=== PATIENT | female | born 1980 | race Caucasian/White ===

== ENCOUNTER 2018-03-19 20:06 | Emergency (ER) | payer OTHER ==
[2018-03-19 20:15] VITALS: BP 122/65; PULSE 90; TEMP 98.8; BMI 27.3
--- NOTE | 2018-03-19 20:34 | PDOC ---
History of Present Illness - General History Source: Patient Exam Limitations: No Limitations - History of Present Illness Initial Comments: 03/19/18 20:53 The patient is a 37 year old female, with no significant past medical history, who presents to the emergency department with a rash to her face, neck and chest today. The patient states her noticed redness on her face this morning, but the patient states she was not very concerned. She reportedly unchanged after work and discovered a burning rash to her anterior chest and neck. She reportedly was started on amoxicillin 2 weeks ago in preparation for oral surgery and was switched to clindamycin about 5 days ago because the oral surgeon told the patient the infection had not resolved. She states she has never taken clindamycin in the past. She denies taking benadryl at home because she was concerned about possible interactions with her current antibiotics. She denies any mouth or throat swelling. She denies any other symptoms. She reports her last dose of clindamycin was around 2PM today. She states she was given 3 medications for pain and has taken one of each type with a few days between each dose. She states has been taking ibuprofen as needed for her dental pain. She denies itching. Secondarily, she reports opened 4 new spices today while cooking dinner, however, states she has used the spices in other dishes in the past. The patient denies chest pain, shortness of breath, headache and dizziness. The patient denies fever, chills, nausea, vomit, diarrhea and constipation. The patient denies dysuria, frequency, urgency and hematuria. Allergies: NKDA Past surgical history: none reported <Lisbeth Barreto - Last Filed: 03/19/18 20:57> <Sharri Shane - Last Filed: 03/20/18 00:37> - General Chief Complaint: Rash Stated Complaint: RASH UPPER TORSO Time Seen by Provider: 03/19/18 20:11 Past History <Lisbeth Barreto - Last Filed: 03/19/18 20:57> - Past Medical History COPD: No - Suicide/Smoking/Psychosocial Hx Smoking History: Never smoked <Sharri Shane - Last Filed: 03/20/18 00:37> - Past Medical History Allergies/Adverse Reactions: Allergies Allergy/AdvReac Type Severity Reaction Status Date / Time [place] And Derivatives Allergy Verified 03/19/18 20:08 No Known Drug Allergies Allergy Verified 03/19/18 20:08 Home Medications: Ambulatory Orders Clindamycin [Cleocin -] 150 mg PO Q6H 03/19/18 Ibuprofen 400 mg PO PRN PRN 03/19/18 Review of Systems - Review of Systems Able to Perform ROS?: Yes Comments:: 03/19/18 20:54 CONSTITUTIONAL: Absent: fever, no chills, no fatigue EYES: Absent: visual changes ENT: Absent: ear pain, no sore throat CARDIOVASCULAR: Absent: chest pain, no palpitations RESPIRATORY: Absent: cough, no SOB GI: Absent: abdominal pain, no nausea, no vomiting, no constipation, no diarrhea GENITOURINARY: Absent: dysuria, no frequency, no hematuria MUSKULOSKELETAL: Absent: back pain, no arthralgia, no myalgia SKIN: (+)rash to chest, neck and face NEURO: Absent: headache <Lisbeth Barreto - Last Filed: 03/19/18 20:57> *Physical Exam - Vital Signs Last Vital Signs Temp Pulse Resp BP Pulse Ox 98.8 F 90 16 122/65 100 03/19/18 20:12 03/19/18 20:12 03/19/18 20:12 03/19/18 20:12 03/19/18 20:12 - Physical Exam Comments: 03/19/18 20:55 GENERAL: The patient is awake, alert, and fully oriented, in no acute distress. HEAD: Normal with no signs of trauma. EYES: Pupils equal, round and reactive to light, extraocular movements intact, sclera anicteric, conjunctiva clear with no pallor. ENT: Ears normal, nares patent, oropharynx clear without exudates. Moist mucous membranes. NECK: Normal range of motion, supple without lymphadenopathy, JVD, or masses. LUNGS: Breath sounds equal, clear to auscultation bilaterally. No wheeze/ crackles. HEART: Regular rate and rhythm, normal S1 and S2 without murmur or rub. ABDOMEN: Soft/nontender/nondistended. BS wnl. No guarding or rebound. No palpable masses. No hepatosplenomegaly. EXTREMITIES: Normal range of motion, no edema. No clubbing or cyanosis. No cords , erythema, or tenderness. NEUROLOGICAL: Cranial nerves II through XII grossly intact. Normal speech, normal gait. PSYCH: Normal mood, normal affect. SKIN: (+) Faint erythema of bilateral cheeks, erythematous maculopapular rash of the anterior chest and scattered on upper back. <Lisbeth Barreto - Last Filed: 03/19/18 20:57> - Vital Signs Last Vital Signs Temp Pulse Resp BP Pulse Ox 98.8 F 90 16 122/65 100 03/19/18 20:12 03/19/18 20:12 03/19/18 20:12 03/19/18 20:12 03/19/18 20:12 <Sharri Shane - Last Filed: 03/20/18 00:37> Moderate Sedation - Procedure Monitoring Vital Signs: Procedure Monitoring Vital Signs Temperature 98.8 F 03/19/18 20:12 Pulse Rate 90 03/19/18 20:12 Respiratory Rate 16 03/19/18 20:12 Blood Pressure 122/65 03/19/18 20:12 O2 Sat by Pulse Oximetry (%) 100 03/19/18 20:12 <Lisbeth Barreto - Last Filed: 03/19/18 20:57> - Procedure Monitoring Vital Signs: Procedure Monitoring Vital Signs Temperature 98.8 F 03/19/18 20:12 Pulse Rate 90 03/19/18 20:12 Respiratory Rate 16 03/19/18 20:12 Blood Pressure 122/65 03/19/18 20:12 O2 Sat by Pulse Oximetry (%) 100 03/19/18 20:12 <Sharri Shane - Last Filed: 03/20/18 00:37> Progress Note - Progress Note Progress Note: Documentation has been prepared under my direction and personally reviewed by me in its entirety. I attest that this documented accurately reflects all work, treatment, procedures and medical decision making performed by me. <Sharri Shane - Last Filed: 03/20/18 00:37> Medical Decision Making - Medical Decision Making As noted above, this 37-year-old woman, currently being treated for dental abscess by oral surgeon and recent change to clindamycin antibiotic course(4 days ago) presents with a few hour history of erythematous, maculopapular rash of the anterior chest and upper back. No history of lip/tongue swelling or airway compromise. Although the patient had been taking amoxicillin up until 4 days ago and has had a few doses of pain medications since treatment of her dental abscess began approximately 10 days ago, the only new medication in the last few days has been the clindamycin. Exam as noted. Patient will stop the clindamycin; Benadryl 25 mg will be given here and further doses every 6 hours as needed will be advised. Since she is nearly at the end of the clinical course of clindamycin, (only 4 capsules left) no new antibiotic will be prescribed. It has been emphasized to the patient that she must call her oral surgeon as soon as possible to let him know that clindamycin was stopped after ALLERGIC reaction. Any further antibiotic treatment of her abscess will be through her oral surgeon. If she has any worsening of her rash or develops any lip/tongue swelling, shortness of breath or difficulty swallowing, she should return to the ER <Sharri Shane - Last Filed: 03/20/18 00:37> *DC/Admit/Observation/Transfer - Attestations Scribe Attestion: 03/19/18 20:55 Documentation prepared by Lisbeth Barreto, acting as ophthalmic medical technician for Sharri Shane MD <Lisbeth Barreto - Last Filed: 03/19/18 20:57> <Sharri Shane - Last Filed: 03/20/18 00:37> Diagnosis at time of Disposition: Urticaria Allergic reaction caused by a drug Qualifiers: Encounter type: initial encounter Qualified Code(s): T78.40XA - Allergy, unspecified, initial encounter - Discharge Dispostion Disposition: HOME Condition at time of disposition: Stable - Patient Instructions Printed Discharge Instructions: Mandeep Additional Instructions: stop clindamycin let your oral surgeon know that you have stopped the antibiotic Benadryl 25 mg up to 3 times a day as needed Cool compresses to rash as needed You can continue ibuprofen/acetaminophen as needed for pain Return to ER if you have severe rash/lip or tongue swelling /difficulty swallowing Follow-up with your general doctor within the next 5 days
[2018-03-19] MEDS ORDERED: diphenhydrAMINE HCL 25 MG CAPSULE (FP) PO ONE ×2 (20:49→20:51)
== END 2018-03-19 21:04 | disposition home or self-care (01) ==
LOC: FER 20:06
DX: T78.40XA Allergy, unspecified, initial encounter (principal)
CPT/HCPCS: 99281-25

== ENCOUNTER 2023-02-27 21:19 | Emergency (ER) | payer BC, OTHER ==
[2023-02-27 21:28] VITALS: BP 114/72; PULSE 97; RESP 18; TEMP 98.3; BMI 29.2
[2023-02-27] MEDS ORDERED: ACETAMINOPHEN 1000 MG/100 ML BAG IVPB ONE (22:08)
[2023-02-27] MEDS ORDERED: ONDANSETRON 4 MG/2 ML VIAL IVPUSH ONE (22:08)
[2023-02-27 22:28] LABS: BASO % 0.6 % (0-2.0); EOS % 1.3 % (0-4.5); HEMATOCRIT 38.3 % (32.4-45.2); LYMPH % 18.9 % (8-40); MCH 27.6 pg (25.7-33.7); MCHC 33.9 g/dl (32.0-36.0); MEAN CELL VOLUME 81.5 fl (80-96); MEAN PLT VOLUME 7.5 fl (7.5-11.1); MONO % 7.2 % (3.8-10.2); PLATELET COUNT 449 10^3/uL (134-434); WHITE BLOOD COUNT 14.3 K/mm3 (4.0-10.0)
[2023-02-27 22:31] LABS: EPI CELLS 11 /uL (0-25.1); HYALINE CASTS 0 /uL (0-3.1); PH,URINE 6.5 (5.0-8.0); URINE APPEARANCE CLEAR; URINE BACTERIA 154 /uL (0-1359); URINE BILIRUBIN NEGATIVE (NEGATIVE); URINE COLOR YELLOW; URINE GLUCOSE (UA) NEGATIVE (NEGATIVE); URINE KETONE NEGATIVE (NEGATIVE); URINE LEUK ESTERASE NEGATIVE (NEGATIVE); URINE NITRITE NEGATIVE (NEGATIVE); URINE PROTEIN NEGATIVE (NEGATIVE); URINE RBC 13 /uL (0-23.9); URINE UROBILINOGEN 0.2 mg/dL (0.2-1.0); URINE WBC 6 /uL (0-25.8)
[2023-02-27] MEDS ORDERED: ONDANSETRON 4 MG/2 ML VIAL ONE (22:37)
[2023-02-27] MEDS ORDERED: ACETAMINOPHEN INJECTION 100 ML IVPB ONE (22:37)
[2023-02-27 22:53] LABS: POTASSIUM 4.4 mmol/L (3.5-5.1)
[2023-02-27 22:55] LABS: ALBUMIN 2.9 g/dl (3.4-5.0); BLOOD UREA NITROGEN 8.3 mg/dL (7-18)
[2023-02-27 22:59] LABS: CREATININE 0.6 mg/dL (0.55-1.3)
[2023-02-27 23:01] LABS: BILIRUBIN,TOTAL 0.2 mg/dL (0.2-1); TOT PROT 7.2 g/dl (6.4-8.2)
[2023-02-27 23:21] LABS: HCG,QUALITATIVE URINE Positive
== END 2023-02-28 01:38 | disposition home or self-care (01) ==
LOC: JER 21:19
DX: O20.9 Hemorrhage in early pregnancy, unspecified (principal); O26.891 Other specified pregnancy related conditions, first trimester; R10.9 Unspecified abdominal pain; K59.00 Constipation, unspecified; O21.9 Vomiting of pregnancy, unspecified; Z3A.11 11 weeks gestation of pregnancy
CPT/HCPCS: 36415; 76801-TC; 80053; 81003; 84702; 84703; 85025; 86850; 86900; 86901; 87086; 99284-25

== ENCOUNTER 2023-08-30 16:15 | Inpatient (IN) | payer BC, OTHER ==
[2023-08-30] MEDS: ELECTROLYTE-148 SOLN 1,000 ML IV SCH (18:15)
[2023-08-30 18:22] VITALS: BMI 33.4
[2023-08-30 19:21] LABS: BASO % 0.3 % (0-2.0); EOS % 0.7 % (0-4.5); HEMATOCRIT 36.2 % (32.4-45.2); HEMOGLOBIN 11.9 GM/dL (10.7-15.3); LYMPH % 16.8 % (8-40); MCH 28.1 pg (25.7-33.7); MCHC 32.8 g/dl (32.0-36.0); MEAN CELL VOLUME 85.7 fl (80-96); MEAN PLT VOLUME 8.4 fl (7.5-11.1); NEUT % 75.2 % (42.8-82.8); PLATELET COUNT 285 10^3/uL (134-434); RBC 4.22 M/mm3 (3.60-5.2); RDW 16.5 % (11.6-15.6); WHITE BLOOD COUNT 11.1 K/mm3 (4.0-10.0)
[2023-08-30 19:27] LABS: INR 0.95 (0.83-1.09); PROTHROMBIN TIME (PATIENT) 10.7 SEC (9.7-13.0)
[2023-08-30 19:30] LABS: ACTIVATED PTT 28.8 SECONDS (25.2-36.5)
[2023-08-30 19:43] LABS: POTASSIUM 4.2 mmol/L (3.5-5.1)
[2023-08-30 19:45] LABS: BLOOD UREA NITROGEN 7.6 mg/dL (7-18); CALCIUM 9.2 mg/dL (8.5-10.1)
[2023-08-30 20:04] LABS: CREATININE 0.9 mg/dL (0.55-1.3)
[2023-08-30] MEDS ORDERED: OXYTOCIN 30 UNITS in 0.9% NS 30 UNIT/500 ML INFUS.BAG IVPB ONE (20:31)
[2023-08-30] MEDS: OXYTOCIN 30 UNITS in 0.9% NS 30 UNIT/500 ML INFUS.BAG IVPB SCH (20:45)
[2023-08-31] MEDS ORDERED: FENTANYL/BUPIVACAINE/NS/PF - PCEA - 50 ML DISP.SYRIN EP ONE ×3 (01:27→09:04)
[2023-08-31] MEDS: FENTANYL/BUPIVACAINE/NS/PF - PCEA - 50 ML DISP.SYRIN EP SCH ×2 (02:10→06:30)
[2023-08-31] MEDS ORDERED: NALOXONE HCL 0.4 MG/ML VIAL IVPUSH PRN (02:26)
[2023-08-31] MEDS: CITRIC ACID/SODIUM CITRATE 30 ML UNIT-DOSE CUP PO ONE (09:30)
[2023-08-31] MEDS ORDERED: ACETAMINOPHEN 325 MG TABLET (FP) PO PRN (09:51)
[2023-08-31] MEDS ORDERED: METHYLERGONOVINE MALEATE 0.2 MG/1 ML AMP IM PRN (09:51)
[2023-08-31] MEDS ORDERED: FENTANYL CITRATE/PF 50 MCG/ML VIAL ONE (10:11)
[2023-08-31 11:11] LABS: CORD BASE EXCESS -0.8 mmol/L (0-2); CORD HCO3 24.8 mmHg (20-29); CORD pH 7.368 (7.14-7.44)
[2023-08-31 11:14] LABS: CORD BASE EXCESS -4.7 mmol/L (0-2); CORD PCO2 46.9 mmHg (30-78); CORD pH 7.29 (7.14-7.44)
[2023-08-31] MEDS: CEFAZOLIN 1 GM in DEXTROSE 5%-WATER - 50 ML IVPB SCH (12:44)
[2023-08-31 12:55] LABS: POC NITRAZINE POS
[2023-08-31] MEDS: OXYTOCIN 20 UNITS in 0.9% NS 20 UNIT/1,000 ML INFUS.BAG IV SCH (13:30)
[2023-08-31] MEDS ORDERED: OXYTOCIN 20 UNITS in 0.9% NS 20 UNIT/1,000 ML INFUS.BAG IV ONE (13:30)
[2023-08-31] MEDS: ONDANSETRON 4 MG/2 ML VIAL IVPUSH PRN (18:49)
[2023-09-01] MEDS: SIMETHICONE 80 MG TAB.CHEW (FP) PO PRN (05:52)
[2023-09-01] MEDS: IBUPROFEN 600 MG TABLET (FP) PO PRN (05:53)
[2023-09-01 06:49] LABS: BASO % 0.5 % (0-2.0); EOS % 0.3 % (0-4.5); HEMATOCRIT 33.4 % (32.4-45.2); HEMOGLOBIN 10.9 GM/dL (10.7-15.3); LYMPH % 10.4 % (8-40); MCH 28.4 pg (25.7-33.7); MCHC 32.7 g/dl (32.0-36.0); MEAN CELL VOLUME 86.8 fl (80-96); MEAN PLT VOLUME 8.1 fl (7.5-11.1); MONO % 6.1 % (3.8-10.2); NEUT % 82.7 % (42.8-82.8); PLATELET COUNT 237 10^3/uL (134-434); RBC 3.85 M/mm3 (3.60-5.2); RDW 16.4 % (11.6-15.6)
[2023-09-01] MEDS: ENOXAPARIN NA (PORCINE) 40 MG/0.4 ML DISP.SYRIN SQ SCH (09:15)
[2023-09-01] MEDS: oxyCODONE HCL 5 MG TABLET PO PRN (22:28)
[2023-09-02] MEDS: BISACODYL 10 MG SUPP.RECT RC PRN (21:33)
[2023-09-03 00:23] VITALS: TEMP 98
[2023-09-03 06:34] LABS: BASO % 0.4 % (0-2.0); EOS % 0.9 % (0-4.5); HEMATOCRIT 31.4 % (32.4-45.2); HEMOGLOBIN 10.2 GM/dL (10.7-15.3); LYMPH % 17.5 % (8-40); MCH 28.1 pg (25.7-33.7); MCHC 32.5 g/dl (32.0-36.0); MEAN CELL VOLUME 86.4 fl (80-96); MEAN PLT VOLUME 8.4 fl (7.5-11.1); NEUT % 75.2 % (42.8-82.8); PLATELET COUNT 265 10^3/uL (134-434); RBC 3.64 M/mm3 (3.60-5.2); RDW 16.1 % (11.6-15.6); WHITE BLOOD COUNT 12.8 K/mm3 (4.0-10.0)
[2023-09-03 10:04] VITALS: BP 117/60; PULSE 87; RESP 18
== END 2023-09-03 14:00 | disposition home or self-care (01) | DRG 788 ==
LOC: JDEL 16:15 → JLDR 17:45 → J3W 08-31 13:50
PROVIDERS: ADMIT Obstetrics & Gynecology; ATTEND Obstetrics & Gynecology
PROC: 10D00Z1 Extraction of Products of Conception, Low, Open Approach (ICD-10-PCS; principal; 2023-08-31)
DX: O42.02 Full-term premature rupture of membranes, onset of labor within 24 hours of rupture (principal); O76 Abnormality in fetal heart rate and rhythm complicating labor and delivery; O99.344 Other mental disorders complicating childbirth; F41.8 Other specified anxiety disorders; Z3A.37 37 weeks gestation of pregnancy; Z37.0 Single live birth
CPT/HCPCS: 36415; 36600; 80048; 82803; 83986-QW; 85025; 85610; 85730; 86780; 86850; 86900; 86901; 88307-TC; 94010

== ENCOUNTER 2024-05-09 17:49 | Emergency (ER) | payer BC, OTHER ==
[2024-05-09 17:57] VITALS: BP 115/62; PULSE 86; RESP 20; TEMP 98.3; BMI 30.2
[2024-05-09] MEDS ORDERED: IBUPROFEN 400 MG TABLET (FP) PO ONE (19:27)
[2024-05-09] MEDS: IBUPROFEN 400 MG TABLET (FP) PO ONE (19:29)
== END 2024-05-09 19:45 | disposition home or self-care (01) ==
LOC: JERFT 17:49
DX: N75.0 Cyst of Bartholin's gland (principal); N94.819 Vulvodynia, unspecified
CPT/HCPCS: 99283-25

== ENCOUNTER 2024-08-18 09:52 | Emergency (ER) | payer BC, OTHER ==
[2024-08-18 10:07] VITALS: BP 134/84; PULSE 93; RESP 16; TEMP 99.1; BMI 30.2
[2024-08-18] MEDS ORDERED: ONDANSETRON 4 MG/2 ML VIAL ONE (11:10)
[2024-08-18 11:22] LABS: ABSOLUTE IMMATURE GRANULOCYTES 0.04 x10^3/uL (0.0-0.031); BASOPHILS # 0.08 x10^3/uL (0.01-0.08); EOSINOPHILS # 0.12 x10^3/uL (0.04-0.36); HEMATOCRIT 35.6 % (34.1-44.9); HEMOGLOBIN 10.9 g/dL (11.2-15.7); MCHC 30.6 g/dl (32.2-35.5); MEAN CELL VOLUME 78.6 fl (79.4-94.8); MEAN PLT VOLUME 9.6 fl (9.4-12.3); MONOCYTE # 0.82 x10^3/uL (0.24-0.86); MONOCYTE % 7.1 % (4.7-12.5); PLATELET COUNT 522 x10^3/uL (182-369); RDW 16.2 % (12.2-17.1)
[2024-08-18 11:26] LABS: EPI CELLS 5 /uL (0-25.1); HYALINE CASTS 0 /uL (0-3.1); URINE APPEARANCE CLEAR; URINE BACTERIA 6 /uL (0-1359); URINE BILIRUBIN NEGATIVE (NEGATIVE); URINE COLOR RED; URINE GLUCOSE (UA) NEGATIVE (NEGATIVE); URINE KETONE NEGATIVE (NEGATIVE); URINE LEUK ESTERASE TRACE (NEGATIVE); URINE NITRITE NEGATIVE (NEGATIVE); URINE PROTEIN 2+ (NEGATIVE); URINE RBC 3704 /uL (0-23.9); URINE UROBILINOGEN 0.2 mg/dL (0.2-1.0); URINE WBC 10 /uL (0-25.8)
[2024-08-18] MEDS: SODIUM CHLORIDE 0.9% 500 ML INFUS.BAG IV ONE (11:40)
[2024-08-18] MEDS: ONDANSETRON 4 MG/2 ML VIAL IVPUSH ONE (11:40)
[2024-08-18 11:45] LABS: POTASSIUM 4.7 mmol/L (3.5-5.1)
[2024-08-18 11:48] LABS: BLOOD UREA NITROGEN 8.1 mg/dL (7-18); CALCIUM 9.8 mg/dL (8.5-10.1)
[2024-08-18 11:52] LABS: CREATININE 0.6 mg/dL (0.55-1.3)
[2024-08-18 11:53] LABS: BILIRUBIN,TOTAL 0.3 mg/dL (0.2-1); TOT PROT 7.1 g/dl (6.4-8.2)
[2024-08-18] MEDS ORDERED: ACETAMINOPHEN INJECTION 100 ML ONE (12:06)
== END 2024-08-18 18:02 | disposition home or self-care (01) ==
LOC: JER 09:52
PROC: 3E033GC Introduction of Other Therapeutic Substance into Peripheral Vein, Percutaneous Approach (ICD-10-PCS; principal; 2024-08-18)
DX: O09.521 Supervision of elderly multigravida, first trimester (principal); O20.9 Hemorrhage in early pregnancy, unspecified; O26.891 Other specified pregnancy related conditions, first trimester; R10.2 Pelvic and perineal pain; R11.0 Nausea; Z3A.00 Weeks of gestation of pregnancy not specified
CPT/HCPCS: 36415; 76817-TC; 80053; 81003; 84702; 85025; 86850; 86900; 86901; 87086; 99285-25